=== PATIENT | male | born 1965 | race Caucasian/White ===

== ENCOUNTER 2019-01-07 12:39 | Inpatient (IN) | payer OTHER ==
[~2019-01-07] VITALS: Ht 165.1 cm; Wt 86.4 kg
[2019-01-07] VITALS (26 sets, daily range): BP systolic 78–111; BP diastolic 50–94; PULSE 101–121; RESP 23–52; Ht 165.1 cm; Wt 86.4 kg
[~2019-01-07 12:39] MED LIST: APIX5TAB PO; ATOR-2 PO; CARV3.1260 PO; CLOP75TA19 PO; FURO40TA4 PO; SPIR25TA PO; SYMB80120 INHALATION; ZOLP5TAB7 PO
[2019-01-07] MEDS ORDERED: FUROSEMIDE 40 MG INJ IV ONE (13:30)
[2019-01-07] MEDS ORDERED: NORepinephrine 8MG/250 ML (PMX 250 ML IV SCH (14:30)
[2019-01-07] MEDS: POTASSIUM CHLORIDE 100 ML IVPB SCH ×3 (14:40→22:17)
[2019-01-07] MEDS ORDERED: DOCUSATE SODIUM 100 MG CAP PO PRN (16:00)
[2019-01-07] MEDS ORDERED: ENOXAPARIN 40 MG/0.4 ML SYG SC SCH (16:00)
[2019-01-07] MEDS ORDERED: BISACODYL 10 MG SUPP PR PRN (16:00)
[2019-01-07] MEDS ORDERED: ONDANSETRON 4 MG INJ IV PRN (16:00)
[2019-01-07] MEDS ORDERED: MAGNESIUM SULFATE 4 GM/100 ML 100 ML IV ONE (16:00)
[2019-01-07] MEDS ORDERED: MAGNESIUM SULFATE 1 GM/D5W 100 ML IVPB ONE (16:30)
[2019-01-07] MEDS ORDERED: MAGNESIUM SULFATE 4 GM/100 ML 100 ML IVPB ONE (16:30)
[2019-01-07] MEDS ORDERED: MAGNESIUM SULFATE 2 GM/50 ML 50 ML IVPB ONE (16:30)
[2019-01-07] MEDS: IPRATROPIUM (NEB) 0.5 MG/2.5 ML AMP NEB SCH ×2 (17:00→20:10)
[2019-01-07] MEDS ORDERED: LIDOCAINE 1% (MPF) 5 ML VIAL SC ONE (17:00)
[2019-01-07] MEDS: ALBUTEROL 0.083% (NEB) 2.5 MG/3 ML AMP NEB SCH ×2 (17:00→20:09)
[2019-01-07] MEDS: NITROGLYCERIN (SL) 0.4 MG TAB SL PRN ×3 (17:08→21:26)
[2019-01-07] MEDS: morphine 2 MG INJ IV PRN ×3 (17:08→22:12)
[2019-01-07] MEDS: MAG SULFATE 2GM IN 50 ML IVPB SCH ×3 (17:30→22:18)
[2019-01-07] MEDS ORDERED: CLOPIDOGREL 75 MG TAB PO SCH (19:30)
[2019-01-07] MEDS: CLOPIDOGREL 75 MG TAB PO SCH (19:50)
[2019-01-07] MEDS ORDERED: APIXABAN 5 MG TABLET PO SCH (21:00)
[2019-01-07] MEDS ORDERED: ATORVASTATIN 80 MG TAB PO SCH (21:00)
[2019-01-07] MEDS: ATORVASTATIN 80 MG TAB PO SCH (21:08)
[2019-01-07] MEDS: FAMOTIDINE 20 MG INJ IV SCH (21:08)
[2019-01-07] MEDS: APIXABAN 5 MG TABLET PO SCH (21:08)
[2019-01-07] MEDS: BUMETANIDE 25 MG in DEXTROSE 5% 150 ML IV SCH (21:17)
[2019-01-08] VITALS (107 sets, daily range): BP systolic 33–121; BP diastolic 24–107; PULSE 85–141; RESP 14–43
[2019-01-08] MEDS: morphine 2 MG INJ IV PRN ×4 (00:14→09:24)
[2019-01-08] MEDS: GUAIFENESIN 20 MG/ML 5ML CUP PO PRN ×2 (00:50→13:40)
[2019-01-08] MEDS: IPRATROPIUM (NEB) 0.5 MG/2.5 ML AMP NEB SCH ×3 (01:03→10:16)
[2019-01-08] MEDS: ALBUTEROL 0.083% (NEB) 2.5 MG/3 ML AMP NEB SCH ×3 (01:03→10:16)
[2019-01-08] MEDS: NORepinephrine 8MG/250 ML (PMX 250 ML IV SCH ×2 (05:46→11:33)
[2019-01-08] MEDS: POTASSIUM CHLORIDE 50 ML IVPB PRN (09:18)
[2019-01-08] MEDS: FAMOTIDINE 20 MG INJ IV SCH ×2 (09:18→20:04)
[2019-01-08] MEDS: CLOPIDOGREL 75 MG TAB PO SCH (09:18)
[2019-01-08] MEDS: APIXABAN 5 MG TABLET PO SCH ×2 (09:18→20:01)
[2019-01-08] MEDS ORDERED: LEVALBUTEROL (NEB) 0.31 MG/3 ML AMP HHN PRN (10:30)
[2019-01-08] MEDS ORDERED: IPRATROPIUM (NEB) 0.5 MG/2.5 ML AMP NEB PRN (10:30)
[2019-01-08] MEDS: DOPamine-D5W 1.6 MG/ML 250 ML IV SCH ×2 (11:34→23:43)
[2019-01-08] MEDS: BUMETANIDE 25 MG in DEXTROSE 5% 150 ML IV SCH (18:30)
[2019-01-08] MEDS: ATORVASTATIN 80 MG TAB PO SCH (20:01)
[2019-01-08] MEDS: morphine 4 MG/ML VIAL IV PRN ×2 (20:08→23:39)
[2019-01-08] MEDS: ACETAMINOPHEN 650MG/20.3ML CUP PO PRN (20:16)
[2019-01-08] MEDS ORDERED: VANCOMYCIN IV PER PHARMACY XX SCH (22:00)
[2019-01-08] MEDS ORDERED: VANCOMYCIN HCL 1.75 GM in SOD CHLORIDE 0.9% 500 ML IVPB SCH (23:00)
[2019-01-08] MEDS: PIPER-TAZO 3.375 GM IV (PMX) 100 ML IVPB SCH (23:30)
[2019-01-09] VITALS (103 sets, daily range): BP systolic 41–100; BP diastolic 22–86; PULSE 93–133; RESP 18–46
[2019-01-09] MEDS: morphine 4 MG/ML VIAL IV PRN ×6 (02:11→23:38)
[2019-01-09] MEDS ORDERED: LIDOCAINE 4% CR TOP PRN (03:30)
[2019-01-09] MEDS: ZOLPIDEM 5 MG TAB PO PRN (04:20)
[2019-01-09] MEDS: ACETAMINOPHEN 650MG/20.3ML CUP PO PRN (04:35)
[2019-01-09] MEDS: POTASSIUM CHLORIDE 50 ML IVPB PRN ×3 (05:11→11:05)
[2019-01-09] MEDS: PIPER-TAZO 3.375 GM IV (PMX) 100 ML IVPB SCH ×3 (05:26→20:43)
[2019-01-09] MEDS ORDERED: MAGNESIUM SULFATE 2 GM/50 ML 50 ML IVPB ONE (06:00)
[2019-01-09] MEDS: DOPamine-D5W 1.6 MG/ML 250 ML IV SCH ×4 (06:28→23:19)
[2019-01-09] MEDS: APIXABAN 5 MG TABLET PO SCH ×2 (08:49→20:42)
[2019-01-09] MEDS: CLOPIDOGREL 75 MG TAB PO SCH (08:49)
[2019-01-09] MEDS: FAMOTIDINE 20 MG INJ IV SCH (08:50)
[2019-01-09] MEDS ORDERED: VANCOMYCIN 1 GM 250 ML IVPB SCH (11:00)
[2019-01-09] MEDS: ALBUMIN HUMAN 25% 100 ML IV SCH ×2 (11:06→17:20)
[2019-01-09] MEDS: BUMETANIDE 25 MG in DEXTROSE 5% 150 ML IV SCH (17:19)
[2019-01-09] MEDS: ATORVASTATIN 80 MG TAB PO SCH (20:42)
[2019-01-09] MEDS: FAMOTIDINE 20 MG TAB PO SCH (20:42)
[2019-01-10] VITALS (100 sets, daily range): BP systolic 55–197; BP diastolic 20–92; PULSE 98–127; RESP 22–60
[2019-01-10] MEDS: VANCOMYCIN 1 GM 250 ML IVPB SCH ×2 (01:15→14:12)
[2019-01-10] MEDS: ALBUMIN HUMAN 25% 100 ML IV SCH (01:16)
[2019-01-10] MEDS: PIPER-TAZO 3.375 GM IV (PMX) 100 ML IVPB SCH ×3 (05:12→20:23)
[2019-01-10] MEDS: DOPamine-D5W 1.6 MG/ML 250 ML IV SCH ×4 (05:20→23:23)
[2019-01-10] MEDS: POTASSIUM CHLORIDE 50 ML IVPB PRN ×5 (05:49→22:07)
[2019-01-10] MEDS: morphine 4 MG/ML VIAL IV PRN (06:54)
[2019-01-10] MEDS ORDERED: MAGNESIUM SULFATE 2 GM/50 ML 50 ML IVPB ONE (07:00)
[2019-01-10] MEDS: CLOPIDOGREL 75 MG TAB PO SCH (08:06)
[2019-01-10] MEDS: APIXABAN 5 MG TABLET PO SCH ×2 (08:06→20:23)
[2019-01-10] MEDS: FAMOTIDINE 20 MG TAB PO SCH ×2 (08:06→20:23)
[2019-01-10] MEDS: METHYLPREDNISOLONE 40 MG INJ IV SCH ×3 (10:27→20:23)
[2019-01-10] MEDS: ALBUMIN HUMAN 25% 50 ML IV SCH ×2 (10:28→17:00)
[2019-01-10] MEDS: NORepinephrine 8MG/250 ML (PMX 250 ML IV SCH (10:55)
[2019-01-10] MEDS: LIDOCAINE 5% PATCH TD SCH (11:00)
[2019-01-10] MEDS: ALPRAZOLAM 0.5 MG TAB PO PRN ×2 (12:21→20:23)
[2019-01-10] MEDS: BUMETANIDE 25 MG in DEXTROSE 5% 150 ML IV SCH (16:59)
[2019-01-10] MEDS: ATORVASTATIN 80 MG TAB PO SCH (20:23)
[2019-01-10] MEDS: ZOLPIDEM 5 MG TAB PO PRN (23:07)
[2019-01-11] VITALS (103 sets, daily range): BP systolic 64–108; BP diastolic 30–82; PULSE 87–122; RESP 18–53
[2019-01-11] MEDS ORDERED: METAXALONE 800 MG TAB PO ONE (00:30)
[2019-01-11] MEDS: ALBUMIN HUMAN 25% 50 ML IV SCH (00:59)
[2019-01-11] MEDS: VANCOMYCIN 1 GM 250 ML IVPB SCH (00:59)
[2019-01-11] MEDS ORDERED: METOLAZONE 10 MG TAB PO ONE (01:00)
[2019-01-11] MEDS: POTASSIUM CHLORIDE 50 ML IVPB PRN (01:05)
[2019-01-11] MEDS: MIDAZOLAM (DRIP) 50 mg/50 mL 50 ML IV SCH ×2 (02:59→12:20)
[2019-01-11] MEDS: VASOPRESSIN 60 UNIT in DEXTROSE 5% 57 ML IV SCH ×3 (03:00→18:00)
[2019-01-11] MEDS: FENTAnyl (DRIP) 1000 mcg/100mL 100 ML IV SCH ×2 (04:19→14:47)
[2019-01-11] MEDS: DOPamine-D5W 1.6 MG/ML 250 ML IV SCH ×3 (04:33→12:33)
[2019-01-11] MEDS: PIPER-TAZO 3.375 GM IV (PMX) 100 ML IVPB SCH ×3 (04:34→22:37)
[2019-01-11] MEDS: METHYLPREDNISOLONE 40 MG INJ IV SCH ×3 (04:34→22:36)
[2019-01-11] MEDS ORDERED: AMIODARONE 200 MG TAB GTB SCH (09:00)
[2019-01-11] MEDS ORDERED: NA BICARBONATE 8.4% 50 ML SYG IV ONE (10:00)
[2019-01-11] MEDS: FAMOTIDINE 20 MG TAB PO SCH ×2 (10:26→21:00)
[2019-01-11] MEDS: CLOPIDOGREL 75 MG TAB PO SCH (10:26)
[2019-01-11] MEDS: LIDOCAINE 5% PATCH TD SCH (10:26)
[2019-01-11] MEDS: APIXABAN 5 MG TABLET PO SCH ×2 (10:26→21:00)
[2019-01-11] MEDS ORDERED: ALBUMIN HUMAN 25% 50 ML IV SCH ×2 (11:30→17:30)
[2019-01-11] MEDS: NORepinephrine 8MG/250 ML (PMX 250 ML IV SCH (12:32)
[2019-01-11] MEDS ORDERED: FUROSEMIDE 40 MG INJ IV ONE (14:30)
[2019-01-11] MEDS ORDERED: SODIUM CHLORIDE 0.9% 1L BAG IV PRN (15:00)
[2019-01-11] MEDS ORDERED: ALBUMIN HUMAN 25% 100 ML IV PRN (15:00)
[2019-01-11] MEDS ORDERED: HEPARIN 1000 UNITS/ML 10 ML INJ CATHETER SCH (15:00)
[2019-01-11] MEDS: NORepinephrine 32 MG in DEXTROSE 5% 218 ML IV SCH (19:00)
[2019-01-11] MEDS: ALBUMIN HUMAN 25% 100 ML IV SCH (20:42)
[2019-01-11] MEDS ORDERED: ATORVASTATIN 80 MG TAB PO SCH (21:00)
[2019-01-12] VITALS (103 sets, daily range): BP systolic 55–117; BP diastolic 17–73; PULSE 97–121; RESP 24–39
[2019-01-12] MEDS ORDERED: CALCIUM GLUCONATE 10% 1 GM in DEXTROSE 5% 100 ML IVPB ONE (03:00)
[2019-01-12] MEDS: ALBUMIN HUMAN 25% 100 ML IV SCH ×3 (03:30→21:07)
[2019-01-12] MEDS ORDERED: SOD CHLORIDE 0.9% 250 ML IV* ONE ×2 (05:21→21:02)
[2019-01-12] MEDS: PIPER-TAZO 3.375 GM IV (PMX) 100 ML IVPB SCH (05:35)
[2019-01-12] MEDS: METHYLPREDNISOLONE 40 MG INJ IV SCH (05:35)
[2019-01-12] MEDS ORDERED: PHYTONADIONE 10 MG in DEXTROSE 5% 50 ML IVPB ONE (06:00)
[2019-01-12] MEDS: MIDAZOLAM (DRIP) 50 mg/50 mL 50 ML IV SCH ×3 (06:13→22:05)
[2019-01-12] MEDS: LIDOCAINE 5% PATCH TD SCH (08:21)
[2019-01-12] MEDS: FAMOTIDINE 20 MG TAB PO SCH (08:21)
[2019-01-12] MEDS: CLOPIDOGREL 75 MG TAB PO SCH (08:21)
[2019-01-12] MEDS: VASOPRESSIN 60 UNIT in DEXTROSE 5% 57 ML IV SCH (08:56)
[2019-01-12] MEDS: NORepinephrine 32 MG in DEXTROSE 5% 218 ML IV SCH (08:57)
[2019-01-12] MEDS ORDERED: FUROSEMIDE 40 MG INJ ONE (09:54)
[2019-01-12] MEDS ORDERED: FUROSEMIDE 40 MG INJ IV ONE (10:00)
[2019-01-12] MEDS: PANTOPRAZOLE 40 MG INJ IV SCH ×2 (10:04→18:33)
[2019-01-12] MEDS ORDERED: ALBUMIN HUMAN 25% 100 ML IV ONE ×2 (11:30→20:30)
[2019-01-12] MEDS ORDERED: MEROPENEM 1 GM/50ML(PMX) 50 ML IVPB SCH (12:30)
[2019-01-12] MEDS ORDERED: EPINEPHrine 4 MG in DEXTROSE 5% 246 ML IV SCH (13:00)
[2019-01-12] MEDS: EPINEPHrine 4 MG in DEXTROSE 5% 246 ML IV SCH ×2 (14:11→20:14)
[2019-01-12] MEDS: HYDROCORTISONE 100 MG INJ IV SCH ×2 (14:12→18:34)
[2019-01-12] MEDS: DOBUTamine/D5W 1 MG/ML DRIP 250 ML IV SCH ×3 (15:46→22:59)
[2019-01-12] MEDS ORDERED: CALCIUM GLUCONATE 10% 2 GM in DEXTROSE 5% 100 ML IVPB STA (20:11)
[2019-01-12] MEDS: DOPamine-D5W 1.6 MG/ML 250 ML IV SCH (21:55)
[2019-01-12] MEDS ORDERED: DEXTROSE 50% 50 ML SYRINGE IV PRN ×6 (22:30)
[2019-01-12] MEDS ORDERED: INSULIN HUMAN REGULAR 100 UNIT in SOD CHLORIDE 0.9% 99 ML IV SCH (22:30)
[2019-01-12] MEDS ORDERED: GLUCAGON 1 MG INJ IM PRN (22:30)
[2019-01-12] MEDS ORDERED: GLUCOSE GEL 15 GRAM TUBE BUCCAL PRN (22:30)
[2019-01-12] MEDS ORDERED: GLUCOSE GEL 15 GRAM TUBE PO PRN ×2 (22:30)
[2019-01-12] MEDS: ACCU-CHEK XX SCH (23:49)
[2019-01-12] MEDS: INSULIN HUMAN REGULAR 100 UNIT in SOD CHLORIDE 0.9% 99 ML IV SCH (23:49)
[2019-01-13] VITALS (101 sets, daily range): BP systolic 45–92; BP diastolic 33–69; PULSE 98–122; RESP 20–33
[2019-01-13] MEDS: HYDROCORTISONE 100 MG INJ IV SCH ×5 (00:15→23:33)
[2019-01-13] MEDS: ACCU-CHEK XX SCH ×12 (01:00→23:00)
[2019-01-13] MEDS: DOBUTamine/D5W 1 MG/ML DRIP 250 ML IV SCH ×2 (02:00→04:38)
[2019-01-13] MEDS: EPINEPHrine 4 MG in DEXTROSE 5% 246 ML IV SCH ×4 (02:28→22:13)
[2019-01-13] MEDS: INSULIN HUMAN REGULAR 100 UNIT in SOD CHLORIDE 0.9% 99 ML IV SCH ×2 (04:12→11:13)
[2019-01-13] MEDS: VASOPRESSIN 60 UNIT in DEXTROSE 5% 57 ML IV SCH ×2 (04:41→15:00)
[2019-01-13] MEDS: NORepinephrine 32 MG in DEXTROSE 5% 218 ML IV SCH ×2 (04:45→21:44)
[2019-01-13] MEDS: ALBUMIN HUMAN 25% 100 ML IV SCH ×2 (05:09→11:14)
[2019-01-13] MEDS: PANTOPRAZOLE 40 MG INJ IV SCH ×2 (05:09→17:47)
[2019-01-13] MEDS: MIDAZOLAM (DRIP) 50 mg/50 mL 50 ML IV SCH ×3 (07:04→23:57)
[2019-01-13] MEDS ORDERED: DOBUTamine/D5W 1 MG/ML DRIP 250 ML IV SCH (07:30)
[2019-01-13] MEDS: LIDOCAINE 5% PATCH TD SCH (08:59)
[2019-01-13] MEDS ORDERED: POTASSIUM CHLORIDE 0 ML IVPB ONE (09:15)
[2019-01-13] MEDS ORDERED: POTASSIUM CHLORIDE 50 ML IVPB ONE ×2 (09:30→13:30)
[2019-01-13] MEDS ORDERED: VANCOMYCIN 1 GM 250 ML IVPB ONE (10:00)
[2019-01-13] MEDS ORDERED: NA BICARBONATE 8.4% 50 ML SYG IV ONE (10:30)
[2019-01-13] MEDS ORDERED: CALCIUM GLUCONATE 10% 2 GM in DEXTROSE 5% 100 ML IVPB ONE (11:00)
[2019-01-13] MEDS: FENTAnyl (DRIP) 1000 mcg/100mL 100 ML IV SCH (13:06)
[2019-01-13] MEDS: MEROPENEM 500MG/50 ML (PMX) 50 ML IVPB SCH (13:07)
[2019-01-14] VITALS (71 sets, daily range): BP systolic 59–157; BP diastolic 25–89; PULSE 0–121; RESP 0–36
[2019-01-14] MEDS: ACCU-CHEK XX SCH ×7 (01:00→13:14)
[2019-01-14] MEDS: VASOPRESSIN 60 UNIT in DEXTROSE 5% 57 ML IV SCH ×2 (03:00→05:36)
[2019-01-14] MEDS: EPINEPHrine 4 MG in DEXTROSE 5% 246 ML IV SCH ×2 (05:15→12:18)
[2019-01-14] MEDS: HYDROCORTISONE 100 MG INJ IV SCH ×2 (05:25→12:26)
[2019-01-14] MEDS: PANTOPRAZOLE 40 MG INJ IV SCH (05:25)
[2019-01-14] MEDS: LIDOCAINE 5% PATCH TD SCH (09:00)
[2019-01-14] MEDS ORDERED: FLUCONAZOLE 400 MG/NS (PMX) 200 ML IVPB SCH (11:00)
[2019-01-14] MEDS ORDERED: FLUCONAZOLE 200 MG (PMX) 100 ML IVPB SCH (11:30)
[2019-01-14] MEDS: MEROPENEM 500MG/50 ML (PMX) 50 ML IVPB SCH (12:59)
[2019-01-14] MEDS: INSULIN HUMAN REGULAR 100 UNIT in SOD CHLORIDE 0.9% 99 ML IV SCH (13:35)
[2019-01-14] MEDS: FENTAnyl (DRIP) 1000 mcg/100mL 100 ML IV SCH (13:36)
[2019-01-14] MEDS ORDERED: LORAZEPAM 2 MG INJ IV PRN (15:00)
[2019-01-14] MEDS: morphine 4 MG/ML VIAL IV PRN (15:01)
== END 2019-01-14 16:32 | disposition expired | DRG 291 ==
LOC: E/R 12:39 → ICU 15:24
PROVIDERS: ADMIT Internal Medicine; ATTEND Internal Medicine
PROC: 0BH17EZ Insertion of Endotracheal Airway into Trachea, Via Natural or Artificial Opening (ICD-10-PCS; 2019-01-11)
PROC: 5A1945Z Respiratory Ventilation, 24-96 Consecutive Hours (ICD-10-PCS; 2019-01-11)
PROC: 02HV33Z Insertion of Infusion Device into Superior Vena Cava, Percutaneous Approach (ICD-10-PCS; 2019-01-11)
PROC: B5181ZA Fluoroscopy of Superior Vena Cava using Low Osmolar Contrast, Guidance (ICD-10-PCS; 2019-01-11)
PROC: 5A1D70Z Performance of Urinary Filtration, Intermittent, Less than 6 Hours Per Day (ICD-10-PCS; 2019-01-11)
PROC: 30233K1 Transfusion of Nonautologous Frozen Plasma into Peripheral Vein, Percutaneous Approach (ICD-10-PCS; principal; 2019-01-12)
PROC: 30233N1 Transfusion of Nonautologous Red Blood Cells into Peripheral Vein, Percutaneous Approach (ICD-10-PCS; 2019-01-12)
DX: I11.0 Hypertensive heart disease with heart failure (principal); J96.01 Acute respiratory failure with hypoxia; J18.9 Pneumonia, unspecified organism; J80 Acute respiratory distress syndrome; K72.00 Acute and subacute hepatic failure without coma; D65 Disseminated intravascular coagulation [defibrination syndrome]; J69.0 Pneumonitis due to inhalation of food and vomit; R65.21 Severe sepsis with septic shock; A41.9 Sepsis, unspecified organism; N17.9 Acute kidney failure, unspecified; I50.23 Acute on chronic systolic (congestive) heart failure; Z95.810 Presence of automatic (implantable) cardiac defibrillator; Z95.5 Presence of coronary angioplasty implant and graft; Z87.891 Personal history of nicotine dependence; R57.0 Cardiogenic shock; E87.6 Hypokalemia; I48.91 Unspecified atrial fibrillation; I25.5 Ischemic cardiomyopathy; R07.9 Chest pain, unspecified; E83.42 Hypomagnesemia; Z79.02 Long term (current) use of antithrombotics/antiplatelets; Z72.0 Tobacco use; I27.20 Pulmonary hypertension, unspecified; R34 Anuria and oliguria; D64.9 Anemia, unspecified
CPT/HCPCS: 36415; 36430; 36600; 71045; 76700; 76937; 80048; 80053; 80076; 80202; 81001; 82550; 82553; 82803; 82962; 83605; 83735; 83880; 84100; 84484; 85025; 85049; 85362; 85378; 85384; 85610; 85670; 85730; 86706; 86850; 86900; 86901; 86920; 87070; 87081; 87086; 87340; 90935; 93005; 93306; 93970; 94002; 94003; 94640; 94660; 94664; 94770; 96365; 96375; C9113; J0171; J0610; J1250; J1265; J1644; J1720; J1815; J1940; J2060; J2185; J2250; J2270; J2405; J2543; J2920; J3010; J3370; J3475; J3480; J7040; J7070; P9016; P9047; P9059